=== PATIENT | male | born 1955 | race Caucasian/White ===

== ENCOUNTER → 2022-01-10 | Outpatient (CLI) | payer MEDICARE | END | disposition home or self-care (01) | LOC: ORTHO 10:45 | PROVIDERS: ATTEND Orthopaedic Surgery | DX: M17.0 Bilateral primary osteoarthritis of knee (principal) ==

== ENCOUNTER → 2024-02-13 | Day surgery (SDC) | payer MEDICARE ==
[~2024-02-13] VITALS: Ht 175.2 cm; Wt 94.8 kg
[~2024-02-13] MED LIST: BUPIVACAINE 0.5% 30 ML IV ONE; Lactated Ringer's Solution 500 ML IV ONE; Lidocaine Hydrochloride 2% 10 ML AMP IM ONE; Lidocaine Hydrochloride 30 ML VIAL ONE; MYLICON, MYLANT80 MG PO; NORVASC2.5 MG PO; OMEPRAZOLE40 MG PO; PROPOFOL 200 MG/20 ML VIAL IV ONE; ZESTRIL20 MG PO; ceFAZolin sodium/sodium chlor 10 ML IV ONE
[2024-02-13 06:30] VITALS: BP 142/80
[2024-02-13 07:01] LABS: BUN 18 mg/dl (9-23); CHLORIDE 107 mmol/L (98-107); POTASSIUM 4.4 mmol/L (3.4-5.1)
[2024-02-13 07:48] VITALS: BP 134/73
[2024-02-13 08:05] VITALS: BP 147/80
[2024-02-13 08:20] VITALS: BP 144/71
== END | disposition home or self-care (01) ==
LOC: SDC 02-05 10:15
PROVIDERS: ATTEND Orthopaedic Surgery
DX: M65.342 Trigger finger, left ring finger (principal); I10 Essential (primary) hypertension; K21.9 Gastro-esophageal reflux disease without esophagitis; Z95.0 Presence of cardiac pacemaker; Z79.899 Other long term (current) drug therapy; Z98.890 Other specified postprocedural states